=== PATIENT | male | born 1960 | race Caucasian/White ===

== ENCOUNTER 2021-06-25 09:13 | Emergency (ER) | payer BC, SELFPAY ==
--- NOTE | ~2021-06-25 | XR_ITS ---
XR chest 2V DATE: 06/25/2021 09:54 INDICATION: Chest tightness, palpitations, dizziness TECHNIQUE: PA and lateral views COMPARISON: None FINDINGS: Normal heart size. No hilar or mediastinal enlargement. No pulmonary infiltrate or consolidation, pleural effusion or pulmonary vascular congestion or pneumo thorax. There is degenerative spurring and minimal dextroscoliosis of the thoracic spine. IMPRESSION: No active cardiopulmonary disease Reviewed, dictated and finalized at location B.
[2021-06-25 09:16] VITALS: BP 180/102; PULSE 88; RESP 20; TEMP 36.4; O2SAT 100
--- NOTE | 2021-06-25 09:23 | ECG_ITS ---
Measurements Intervals [place] Rate: 88 P: 29 CA: 127 QRS: 46 QRSD: 99 T: 14 QT: 337 QTc: 408 Interpretive Statements SINUS RHYTHM BASELINE ARTIFACT- I, II, III, AVR, AVF, V1 NORMAL ECG Electronically Signed On 06-25-2021 9:51:29 CDT by Yoel Lee D.O.
[2021-06-25 09:30] LABS: Basophils Percent Auto 0.7 % (0.2-1.2); Eosinophils Absolute Auto 0.1 K/mm3 (0-0.3); Eosinophils Percent Auto 1.4 % (0-4.4); Hematocrit 46.7 % (42.0-52.0); Lymphocytes Absolute Auto 2.02 K/mm3 (0.9-3.2); Lymphocytes Percent Auto 45.6 % (18.3-44.2); Mean Corpuscular HGB Conc 32.1 g/dl (32-36); Mean Corpuscular Hemoglobin 28.3 pg (26-34); Mean Corpuscular Volume 88.1 fl (80-100); Mean Platelet Volume 8.9 fl (7.4-10.4); Monocytes Absolute Auto 0.4 K/mm3 (0.1-0.6); Monocytes Percent Auto 8.6 % (2.6-8.5); Neutrophils Absolute Auto 1.9 K/mm3 (1.3-6.7); Neutrophils Percent Auto 43.7 % (45.5-73.1); Platelet Count Result 226 k/mm3 (150-375); Red Cell Distribution Width 13.8 % (11.5-14.5); White Blood Count 4.4 K/mm3 (4.5-10.0)
[2021-06-25 09:31] VITALS: BP 156/95; PULSE 97; RESP 20; O2SAT 99
[2021-06-25 09:43] LABS: INR 1.1; Partial Thromboplastin Time 29.3 SECONDS (22.3-36.8); Prothrombin Time 13.9 Seconds (11.1-14.7)
[2021-06-25 09:50] LABS: Alanine Aminotransferase 20 U/L (6-50); Albumin Level 4.5 g/dL (3.5-5.1); Alkaline Phosphatase 56 U/L (38-126); Anion Gap 6 mmol/L (8-16); Aspartate Amino Transferase 32 U/L (17-59); Bilirubin,Total 0.7 mg/dL (0.2-1.3); Blood Urea Nitrogen 16 mg/dL (9-20); Calcium 8.7 mg/dL (8.4-10.2); Carbon Dioxide 28 mmol/L (22-30); Chloride 104 mmol/L (98-107); Estimated CRCL calculation 110 ml/min; Estimated Glomerular Filt Rate > 60; Glucose 103 mg/dL (65-110); Lipase 73 U/L (23-300); Potassium 4.6 mmol/L (3.4-5.0); Sodium 138 mmol/L (137-145)
[2021-06-25 09:58] LABS: Troponin I < 0.012 ng/mL (0.000-0.034)
[2021-06-25] MEDS: SODIUM CHLORIDE 0.9% IV 1,000 ML 999 ML IV CONT (10:06)
[2021-06-25] MEDS: MECLIZINE HCL 25 MG TABLET PO (10:06)
[2021-06-25 12:00] VITALS: BP 149/92; PULSE 68; RESP 13; O2SAT 99
--- NOTE | 2021-06-25 12:10 | ED.DIZZY ---
HPI - Dizziness General Chief Complaint: Dizziness Stated Complaint: dizziness Time Seen by Provider: 06/25/21 09:18 History of Present Illness HPI Narrative: Patient is a 60-year-old male who presents ER with dizziness. Sudden onset this morning. Worse with looking down and looking up and also with turning his head. Feels unsteady when he is walking. Associated with some nausea. Patient reports yesterday he was feeling some palpitations and slightly off. No chest pain or chest pressure. No history of heart disease. Patient does have history of vertigo. Denies sinus congestion or sore throat or productive cough. No hearing loss. Has not tried any medicine. Has noticed his blood pressures been slightly elevated. Related Data Allergies Allergy/AdvReac Type Severity Reaction Status Date / Time No Known Allergies Allergy Verified 06/25/21 09:17 Review of Systems Review of Systems: All systems reviewed & are unremarkable except as noted in HPI and below Constitutional: Constitutional: Denies chills, Denies fever(s) and Denies weakness ENT: Reports dizziness, Denies nasal congestion and Denies sore throat Cardiovascular: Cardiovascular: Denies chest pain, Reports rapid heart rate and Denies radiating jaw, neck or arm pain Respiratory: Respiratory: Denies cough, Denies dyspnea and Denies wheezing Gastrointestinal: Gastrointestinal: Denies diarrhea, Reports nausea and Denies vomiting Neurologic: Reports dizziness, Denies syncope, Denies headache(s), Denies focal weakness and Denies numbness PMFSH Past Medical History Medical History (Updated 06/25/21 @ 12:16 by Naseem Dozier MD) Hypertension Vertigo Surgical History Surgical History (Updated 06/25/21 @ 12:12 by Naseem Dozier MD) No pertinent past surgical history Social History Social History (Updated 06/25/21 @ 12:12 by Naseem Dozier MD) Smoking status: Never smoker Exam Narrative: GENERAL: Well-appearing, well-nourished, and in no acute distress. HEAD: Normocephalic, atraumatic. EYES: PERRL and EOMI. right gaze nystagmus. ENT: Mucous membranes moist. TMs normal bilaterally. Ear canals free of cerumen. NECK: Supple. CHEST: Clear to auscultation. No respiratory distress. HEART: Regular rate and rhythm. Normal peripheral pulses. ABDOMEN: Soft, nontender, nondistended. EXTREMITIES: Normal range of motion. No edema. NEURO: No focal deficits. No upper or lower extremity drift. Normal [id number] and [id number] testing. Alert and oriented x3. PSYCH: Normal mood and affect. Course Course Emergency Course: Patient feels significantly improved with meclizine and fluids. Discussed labs and treatment plan. Verbalized understanding. Discharge home. Vital Signs Vital signs: Vital Signs Temperature 97.6 F 06/25/21 09:16 Pulse Rate 88 06/25/21 09:16 Respiratory Rate 20 06/25/21 09:16 Blood Pressure 180/102 H 06/25/21 09:16 Pulse Oximetry 100 06/25/21 09:16 Temperature 97.6 F 06/25/21 09:16 Pulse Rate 68 06/25/21 12:00 Respiratory Rate 13 06/25/21 12:00 Blood Pressure 149/92 H 06/25/21 12:00 Pulse Oximetry 99 06/25/21 12:00 MDM - Dizziness Lab Data Result diagrams: 06/25/21 09:24 06/25/21 09:24 Labs: Lab Results 06/25/21 06/25/21 06/25/21 Range/Units 09:24 09:24 09:24 WBC 4.4 L (4.5-10.0) K/mm3 RBC 5.30 (4.6-6.20) M/mm3 Hgb 15.0 (14.0-18.0) g/dL Hct 46.7 (42.0-52.0) % MCV 88.1 (80-100) fl MCH 28.3 (26-34) pg MCHC 32.1 (32-36) g/dl RDW 13.8 (11.5-14.5) % Plt Count 226 (150-375) k/mm3 MPV 8.9 (7.4-10.4) fl Immature Gran % (Auto) 0.0 (0-0.5) % Neut % (Auto) 43.7 L (45.5-73.1) % Lymph % (Auto) 45.6 H (18.3-44.2) % [place] % (Auto) 8.6 H (2.6-8.5) % Eos % (Auto) 1.4 (0-4.4) % Baso % (Auto) 0.7 (0.2-1.2) % Lymph # (Auto) 2.02 (0.9-3.2) K/mm3 [place] # (Auto) 0.4 (0.1-0
== END 2021-06-25 12:45 | disposition home or self-care (01) ==
PROVIDERS: Emergency Provider Emergency Medicine
DX: H81.10 Benign paroxysmal vertigo, unspecified ear (principal); I10 Essential (primary) hypertension
CPT/HCPCS: 36415; 71046; 80053; 83690; 84484; 85025; 85610; 85730; 93005; 96360; 99284; A9270; J7030